=== PATIENT | male | born 1995 ===

== ENCOUNTER 2024-03-01 19:24 | Emergency (ER) | payer BC, SELFPAY ==
[2024-03-01 19:35] VITALS: BP 101/81; PULSE 90; RESP 18; TEMP 36.6; O2SAT 100
--- NOTE | 2024-03-01 19:40 | ED_ITS ---
HPI - Wound/Laceration General Chief Complaint: Wound/Laceration Stated Complaint: Injured thumb left hand Time Seen by Provider: 03/01/24 19:40 Source: patient, RN notes reviewed and old records reviewed Mode of arrival: ambulatory Limitations: no limitations History of Present Illness HPI narrative: 28-year-old male who presents to [facility] with complaints laceration to to his left thumb while cutting an onion at 1900 with laceration to tissue under distal nail with bleeding noted from under tip of nail. Patient has small cut of skin at distal outer edge of nail. Patient reports that he has held pressure and can't seem to get bleeding to stop. Wound cleansed with wound cleanser and saline and pressure applied with bleeding stopped. Patient reports that tetanus shot is up to date. Onset (ago): hour(s) ( 1900) Location: other (left thumb) Place: home Patient tetanus UTD: Yes Treatments prior to arrival: bandage Related Data Allergies Allergy/AdvReac Type Severity Reaction Status Date / Time No Known Allergies Allergy Unverified 03/01/24 19:32 Review of Systems Review of Systems: CONSTITUTIONAL: Denies fever, chills, or sweats. CARDIOVASCULAR: Denies chest pain, palpitations, or edema. RESPIRATORY: Denies cough or dyspnea. SKIN: Reports laceration of skin to tissue under distal nail bed with active bleeding on arrival to clinic small cut to distal side of nail MUSCULOSKELETAL: Denies musculoskeletal pain NEUROLOGIC: Denies numbness, or weakness. All systems reviewed & are unremarkable except as noted in HPI and below PMFSH Social History Social History Smoking status: Never smoker Comments At time of signature, agree with nursing past medical, surgical, social and family history. There is no relevant family history pertinent to the presenting complaint Exam Narrative: GENERAL: Well-appearing, well-nourished, and in no acute distress. HEAD: Normocephalic, atraumatic. NECK: Supple.no lymphadenopathy CHEST: Clear to auscultation. No respiratory distress.SAO2 100% on room air HEART: Regular rate and rhythm. No murmur heard. Normal peripheral pulses. EXTREMITIES: Normal range of motion. No edema. SKIN: Warm, dry, no rash. Reports laceration to the tissue under distal nail bed with small cut avulsion type of wound at distal edge of left thumb, see procedure note NEURO: No focal deficits. Alert and oriented x3. Course Course Level of Care: Express Care Visit Vital Signs Vital signs: Vital Signs Temperature 36.6 C 03/01/24 19:35 Pulse Rate 90 03/01/24 19:35 Respiratory Rate 18 03/01/24 19:35 Blood Pressure 101/81 03/01/24 19:35 Pulse Oximetry 100 03/01/24 19:35 Oxygen Delivery Room Air 03/01/24 19:35 Temperature 36.6 C 03/01/24 19:35 Pulse Rate 90 03/01/24 19:35 Respiratory Rate 18 03/01/24 19:35 Blood Pressure 101/81 03/01/24 19:35 Pulse Oximetry 100 03/01/24 19:35 Oxygen Delivery Room Air 03/01/24 19:35 Procedures Laceration distal thumb: Date: 03/01/24 Time: 19:50 Site: hand (left distal thumb) Side (If applicable): left Size (cm): 0.5 Description: other (cut under the distal left thumb nail with small cut to distal edge) Depth: simple, single layer Local Anesthetic: none Pre-repair: irrigated and other (cleansed with wound care solution) ====== Skin Level ====== Skin layer closed with: steri strips ====== Subcutaneous Layer ====== ====== Muscle Layer ====== ====== Tendon Layer ====== Dressing: Telfa dressing over tip of thumb and covered with tube gauze dressing and taped to secure. MDM - Wound/Laceration MDM Narrative Medical decision making narrative: Wound explored for foreign body and copious irrigation provided with no evidence of FB. Discussed the potential of retained foreign body with the patient and signs/symptoms that should prompt the patient to immediately go to the ED for reevaluation. The wound was explored and no foreign bodies were found. There was no evidence of tendon or nerve lacerations. The wound was closed per procedure note. A sterile dressing was then applied and anticipatory guidance was provided. Tetanus prophylaxis [(was/was not)] given Differential Diagnosis Differential diagnosis: Likely laceration, abrasion, avulsion of skin and other (laceration at distal thumb under nail edge) Medical Records Attestation: I reviewed the patient's medical records. Critical Care Time Critical Care Time Critical Care Time: No Discharge Plan Discharge Clinical Impression: Laceration of left thumb Patient Disposition: Home, Self-Care Condition: Stable Instructions: Antibiotic Form, Finger Laceration (ED) Additional Instructions: Keep the area clean and dry No continuous water contact like dishes or swimming You may bathe and wash you hair caution with hair products or lotions dressing of choice (leave initial dressing for 24 hours) the dressing twice watch for infection--redness, swelling, drainage let steri strip fall off on their own recheck with PCP if further concerns or problems If your symptoms persist, change or worsen significantly before you can contact your personal physician then please, without delay, go to the emergency department for further evaluation. Follow-up with PCP in 7-10 days or sooner if needed antibiotic as prescribed Prescriptions: New cephalexin 500 mg capsule 500 mg PO Q12H Qty: 14 0RF Follow-up/Referrals: PHYSICIAN,COMMERCIAL PAINTER [Primary Care Provider] - Time of Disposition: 20:12 Quality Ayush Coma Scale Eyes: Open Verbal: Oriented and Alert Motor: Follows Commands Ayush Coma Total Score: 15
== END 2024-03-01 20:13 | disposition home or self-care (01) ==
PROVIDERS: Emergency Provider Registered Nurse
DX: S61.012A Laceration without foreign body of left thumb without damage to nail, initial encounter (principal); W45.8XXA Other foreign body or object entering through skin, initial encounter; Y93.G1 Activity, food preparation and clean up
CPT/HCPCS: 99213; G0463